=== PATIENT | male | born 1975 | race Caucasian/White ===

== ENCOUNTER 2019-11-14 08:11 | Outpatient (CLI) | payer BC, SELFPAY ==
--- NOTE | 2019-11-14 08:40 | FL_ITS ---
WS: [id number] DOUBLE CONTRAST UPPER GI EXAMINATION HISTORY: HIATAL HERNIA, GERD, ABDOMINAL BLOATING COMPARISON: None available. FLUOROSCOPY TIME: 1.8 minutes. Reporting Consultant film reveals normal distribution of gas throughout the GI tract. No suspicious masses or calcif ications. Barium mixture traversed normally throughout the esophagus. No filling defects within the stomach. Du odenal bulb was normally distensible and pliable. Minimal gastroesophageal reflux into the distal esophagus. Very small hiatal hernia was intermittently visualized on this examination. FL/FL upper GI w air* [id number] IMPRESSION: 1. Minimal distal gastroesophageal reflux. 2. Small reducible hiatal hernia.
== END 2019-11-14 08:12 | disposition home or self-care (01) ==
PROVIDERS: Family Provider Electrodiagnostic Medicine; PCP Electrodiagnostic Medicine; Visit Provider Electrodiagnostic Medicine
DX: K44.9 Diaphragmatic hernia without obstruction or gangrene (principal); K21.9 Gastro-esophageal reflux disease without esophagitis; R14.0 Abdominal distension (gaseous)
CPT/HCPCS: 74246